=== PATIENT | male | born 1980 | race Hispanic/Latino ===

== ENCOUNTER 2025-05-08 23:13 | Emergency (ER) | payer SELFPAY ==
[2025-05-08] MEDS ORDERED: diphenhydrAMINE 50 MG/ML VIAL ONE (23:26)
[2025-05-08] MEDS ORDERED: Famotidine/PF 20 mg/2ml Vial ONE (23:27)
[2025-05-09] MEDS ORDERED: HYDROcodone/Acetaminophen 5/325 mg Tablet ONE (00:24)
== END 2025-05-09 00:57 | disposition home or self-care (01) ==
LOC: MADERS 23:13
DX: T88.6XXA Anaphylactic reaction due to adverse effect of correct drug or medicament properly administered, initial encounter (principal); T39.395A Adverse effect of other nonsteroidal anti-inflammatory drugs [NSAID], initial encounter; F17.210 Nicotine dependence, cigarettes, uncomplicated
CPT/HCPCS: 93005; 96372; 96374; 96375; J0169; J1200; J1308; J2919; J7030